=== PATIENT | male | born 1955 | race African-American/Black ===

== ENCOUNTER 2016-08-17 14:29 | Inpatient (IN) | payer MEDICARE, OTHER ==
--- NOTE | ~2016-08-17 | CN ---
Consultation Report [facility] [address] [place] [place]. [address] NAME: TOVA PRATT : 53 STATUS : ADM IN PAT#: [id number] AGE: 60 ADM/REG DATE : 08/17/16 MR#: [id number] REPORT SERV DATE: 08/19/16 DICTATED BY: AUDELIA PULIDO DATE: 08/19/16 REPORT STATUS : Draft TRANSCRIBED BY: MODFabio DATE: 08/19/16 NEUROLOGICAL EVALUATION DATE OF CONSULTATION: 08/18/2016 REASON FOR NEUROLOGICAL EVALUATION/CONSULTATION: Recurrent seizures, possible stroke. HISTORY OF PRESENT ILLNESS: History was obtained from the patient's sitter and from medical records in addition to the patient's primary provider Dr. Ibarra. This is a 60-year-old male with known history of cerebral palsy, long-standing history of seizure disorder with history of hypertension, hyperlipidemia, and possible history of past stroke, who was admitted from [facility] for an evaluation of possible recurrent seizures and altered mental status. The patient who was witnessed to have several seizures a day prior to admission, and as per description, the patient was not back to his baseline and was confused and lethargic. In the past, there was a concern that the patient may have had a recent stroke. 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 No acute changes were observed, although there was a mention that the patient may have had an old stroke involving the left hemisphere. The chronicity of the stroke was difficult to determine. The patient has been on multiple anticonvulsant medications, which included Keppra, Depakote, Lamictal, and Vimpat. In addition, patient's other medications include Lopressor, Zocor, Protonix, and Prinivil. Allergies to NSAIDs. SOCIAL HISTORY: The patient lives in a facility-[facility]. FAMILY HISTORY: Could not be obtained from the patient. As per patient, he has sisters and brothers who apparently do not come to visit him. REVIEW OF SYSTEMS: The patient was not able to provide all the history, however, it appeared that the patient may have been slightly postictal. MEDICATIONS: Keppra was 1000 mg p.o. b.i.d., Lamictal was 100 mg b.i.d., Vimpat was 200 mg in the morning and 300 mg at bedtime, Depakote was 500 mg p.o. b.i.d., Lopressor was 25 mg b.i.d., Zocor was 10 mg p.o. daily, and Prinivil was 20 mg p.o. daily. On admission, patient's EKG was regular sinus rhythm with mild criteria of left ventricular hypertrophy. The patient's laboratory studies were essentially unremarkable except for sodium of 130 on admission. PHYSICAL EXAMINATION: GENERAL: The patient was alert and cooperative, sitting in bed, quiet, not agitated, did not provide additional information. His speech was not dysarthric. There were signs of longstanding cognitive dysfunction and the patient's level of intelligence was difficult to Consultation Report [address] [place] [place]. [address] NAME: TOVA PRATT : 53 STATUS : ADM IN [facility]#: [id number] AGE: 60 ADM/REG DATE : 08/17/16 MR#: [id number] REPORT SERV DATE: 08/19/16 DICTATED BY: AUDELIA PULIDO DATE: 08/19/16 REPORT STATUS : Draft TRANSCRIBED BY: DILLAN DATE: 08/19/16 estimate at this time. However, it appears that the patient has had moderately severe mental retardation. The patient was oriented to self, but not to place or time. VITAL SIGNS: Blood pressure 140/66, pulse was 80, respirations 16, temperature was 96.5. HEAD AND NECK: Examination showed no evidence of acute trauma. The patient may have slight microcephaly. Eyes examination, sclerae were not icteric. Conjunctivae were pink. ENT exam, tongue was midline. No atrophy or fibrillations were noted. Neck was supple. There was no Kernig or Brudzinski. Cervical range of motion was not impaired. No JVD. No thyromegaly or lymphadenopathy noted. CHEST: Symmetrical. LUNGS: Clear to auscultation. HEART: Regular S1, S2. I did not appreciate any murmurs or rubs. ABDOMEN: Soft, nontender. No organomegaly. EXTREMITIES: Show no clubbing, cyanosis. There was no peripheral edema. Peripheral pulses were normal. NEUROLOGICAL: The patient was alert, oriented to self only, not to time and place. Level of intelligence is mentioned above, difficult to estimate. It appears the patient has moderately severe chronic mental retardation. He responded appropriately, appeared to be mildly subdued, followed commands, however, had difficulty following two-step commands. His speech was for the most part, fluent. There was evidence of possible long-standing dysphagia secondary to past neurological insult either or . CRANIAL NERVES: 2 through 12, patient's baseline gaze appeared to be dysconjugate. No limitation of upward or downward gaze or lateral gaze was noted. No facial asymmetry was noted. Lower cranial nerves appeared intact. The patient had normal gag reflex. Palate elevated symmetrically. The rest of cranial nerve examination appeared to show possible mild right visual neglect. 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 Strength on the left appeared intact, on the right 4-/5. Tone was markedly increased on the right. SENSORY: As mentioned, the patient may have mild sensory neglect on the right, however, appeared to perceive sensation equally on both sides. CEREBELLAR: Showed mild incoordination in [id number]-pc-[id number] on the left and the patient had difficulty performing it on the right secondary to a semi long-standing hemiparesis. Gait could not be tested. 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 No acute changes were noted. LABORATORY STUDIES: Sodium 132, potassium 4.1, chloride 96, BUN 10, creatinine 0.79, glucose 65, calcium 8.5. WBC count 4.9, hemoglobin 13.4, hematocrit 39.9, platelet count 211,000. IMPRESSION AND RECOMMENDATIONS: 1. History of longstanding seizure disorder. The patient is on multiple anticonvulsant medications. Recommend to continue present dosages without changing either timing, dosages, or number of anticonvulsant medications. Recommend to obtain Depakote level, Consultation Report [place] [address] [place]. [address] NAME: TOVA PRATT : 53 STATUS : ADM IN [facility]#: [id number] AGE: 60 ADM/REG DATE : 08/17/16 MR#: [id number] REPORT SERV DATE: 08/19/16 DICTATED BY: AUDELIA PULIDO DATE: 08/19/16 REPORT STATUS : Draft TRANSCRIBED BY: MODL DATE: 08/19/16 and if normal, continue present current dosage of Depakote. 2. Probable postictal state. 3. Acute on chronic encephalopathy. 4. Past history of possible stroke, rule out new stroke, although the patient's examination is not suggestive of it. The patient is awaiting to have an MRI done. Chronic cognitive dysfunction secondary to cerebral palsy and right chronic hemiparesis with spasticity and contractures. 5. Presence of significant degenerative changes in cervical [id number]-[id number]-[id number] degenerative changes. 6. Monitor patients for recurrent seizures, seizure precautions. The patient has increased risk of falling and injury. Review the EEG for now. Continue present medications. Obtain Depakote levels. The antihypertensive medications appear to function appropriately, but would not lower the patient's blood pressure below the present range of 140 systolic until more information is available from the MRI of the brain. Thank you for allowing me to participate in this patient's care and additional recommendations will follow according to the patient's clinical progress and results of abovementioned studies. ZAK/DILLAN Audelia Pulido MD / [id number] CC: Lupillo Segura M.D.
--- NOTE | ~2016-08-17 | HP ---
History And Physical [place] [address] [facility]. [address] NAME: TOVA PRATT : 53 STATUS : ADM IN PAT#: [id number] AGE: 60 ADM/REG DATE : 08/17/16 MR#: [id number] REPORT SERV DATE: 08/17/16 DICTATED BY: THAO CORREIA DATE: 08/17/16 REPORT STATUS : Draft TRANSCRIBED BY: MODL DATE: 08/17/16 DATE OF ADMISSION: 08/17/2016 CHIEF COMPLAINT: Seizure. HISTORY OF PRESENT ILLNESS: The patient is a 60-year-old male. He has a past medical history significant for known seizure disorder, organic brain syndrome, mental retardation, cerebral palsy, reflux disease, hypertension, and hyperlipidemia. He presents today as a referral from [facility]. He is seen without the benefit of caregivers who are familiar with him today. History is from the patient, available records, and the ER physician. Apparently yesterday, the patient had several witnessed seizures, but afterward seemed to be not his normal self. He was described as having more lethargy, more confusion, and for some reason, there was a concern of a stroke. On examination today, the patient is awake. He is alert. He is answers questions. His speech is somewhat slow and slurred, but there are no one present here today to know his underlying baseline. He is moving all extremities. He seems to have some chronic deviations of the right foot and right hand, but otherwise no other findings. He has some chronic hyponatremia, but his sodium was 130 today. It is uncertain as to when his last seizure occurred. It was apparently sometimes yesterday. PAST MEDICAL HISTORY: As covered above. PAST SURGICAL HISTORY: Not obtainable. CURRENT MEDICATIONS: His pharmacy summary is pending. ALLERGIES: ASPIRIN AND NSAIDS. FAMILY HISTORY: Unobtained. SOCIAL HISTORY: He is a nondrinker and nonsmoker. REVIEW OF SYSTEMS: The patient is not currently complaining of weakness, difficulty seeing, headache, nausea, vomiting, chest pain, palpitations, shortness of breath, or pain anywhere. He does state that this is not his baseline speech patter, however. PHYSICAL EXAMINATION: VITAL SIGNS: BP 177/94, pulse 67, temperature 97.4, respirations have been 16, and saturation 99%. GENERAL: He is awake, alert, in no acute distress. HEENT: Normocephalic, atraumatic. Sclerae nonicteric. NECK: Supple. HEART: Regular rate and rhythm. LUNGS: Clear to auscultation. ABDOMEN: Nontender. Nondistended. EXTREMITIES: He has trace edema. He has some lateral deviation to his right foot. He History And Physical [address] [place]. [address] NAME: TOVA PRATT : 53 STATUS : ADM IN PAT#: [id number] AGE: 60 ADM/REG DATE : 08/17/16 MR#: [id number] REPORT SERV DATE: 08/17/16 DICTATED BY: THAO CORREIA DATE: 08/17/16 REPORT STATUS : Draft TRANSCRIBED BY: DILLAN DATE: 08/17/16 appears to have some chronic deviation to the fingers of his right hand. LABORATORY DATA: Sodium 130, potassium 4.2, chloride 94, CO2 of 27, BUN and creatinine 11 and 0.89 with a glucose of 80. Troponins less than 0.02. White count 4.9, H and H are 13.4 and 39.9, platelets are 211. Urinalysis is pending. CT brain, no acute changes. Chest x-ray, no change in his 06/2016 EKG, sinus rhythm, LVH. ASSESSMENT: The patient appears to have seizure disorder in the past residual neurologic findings differential seizure versus cerebrovascular accident, although again his baseline is not determinable. PLAN: 1. The patient has been admitted. 2. We will resume his home medications. 3. We will place him on seizure precautions. 4. Volume restriction for his sodium. 5. Repeat lab. 6. MRI in a.m. 7. Additional recommendations as further history is available. His sitter attempted to call the flatwork supervisor at [facility] to get baseline and any additional history, but they have been unreachable at this time. TLF/MODL Thao Correia M.D. / [id number] CC: Lupillo Matthews M.D.
--- NOTE | ~2016-08-17 | DS ---
Discharge Summary [place] [address] [facility] [place]. [address] NAME: TOVA PRATT : 53 STATUS : DIS IN PAT#: [id number] AGE: 60 ADM/REG DATE : 08/17/16 MR#: [id number] REPORT SERV DATE: 08/23/16 DICTATED BY: MEGHANA ROSAS DATE: 08/22/16 REPORT STATUS : Draft TRANSCRIBED BY: MODL DATE: 08/22/16 ADMISSION DATE: 08/17/2016 DISCHARGE DATE: 08/21/2016 CONDITION ON DISCHARGE: Stable. DISPOSITION: Discharge back to [facility]. ADVISE ON DISCHARGE: To follow up with PCP within the next one to two weeks and to follow up with his regular neurologist, Dr. Crystal, within the next one to two weeks also. DIAGNOSES ON DISCHARGE: 1. Acute on chronic encephalopathy - resolved. His seizure medications have been adjusted after neurologist has been consulted. His EEG showed diffuse slowing, consistent with nonspecific findings versus probably postictal state in this patient for which his medications were adjusted. Neurology was consulted and Dr. Audelia Pulido take increased his Keppra to 1 g p.o. b.i.d. His chronic problems that have remained stable at this time include: 1. Chronic seizure disorder - now controlled. 2. He is on of at least four antiepileptic medications. 3. Chronic encephalopathy. 4. Cerebral palsy. 5. Hypertension. 6. Hyperlipidemia. 7. Old cerebrovascular accident with a stroke that happened on the left side of the brain that left him with contractures on the right side of the body including right hand and right foot which is probably chronic and also he already had some from his cerebral palsy and this became worse from the old stroke. However, the stroke is not new. BRIEF HOSPITAL COURSE: Mr. Pratt is a 60-year-old patient who is a resident of [facility] because of his mental retardation and cerebral palsy and organic brain syndrome with a known history of seizure disorder, came in because of increasing confusion, lethargy, and acute encephalopathy. Initially, he was admitted per stroke protocol, and workup was initiated per stroke protocol. Neurology was consulted. CT scan of the brain and MRI of the brain showed old stroke on the left side of the brain affecting the right side of the body, but this was old and no new strokes were identified. EEG showed diffuse nonspecific slowing, and Neurology felt that this could be nonspecific versus postictal state. However, the only suggestion that they had was continuing all four antiepileptic drugs but increase his Keppra to 1 g p.o. b.i.d. which happened. His encephalopathy resolved, and the patient pretty much came back to his baseline mental status on the day of discharge. There was also a question that he had swallowing difficulty, and hence, I involved Speech Therapy to do a dysphagia screen on this patient, and the patient does not display any signs of overt aspiration. Hence, it was recommended that the patient be given a soft mechanical diet with aspiration precautions which he has done really well on. Hence, he is being sent home on the following medications. His chronic home medications Discharge Summary [address] [place]. [address] NAME: TOVA PRATT : 53 STATUS : DIS IN PAT#: [id number] AGE: 60 ADM/REG DATE : 08/17/16 MR#: [id number] REPORT SERV DATE: 08/23/16 DICTATED BY: MEGHANA ROSAS DATE: 08/22/16 REPORT STATUS : Draft TRANSCRIBED BY: DILLAN DATE: 08/22/16 that he takes will remain the same and these will include the followin. Depakote 500 mg p.o. b.i.d. 2. Vimpat 200 mg p.o. daily and 300 mg at bedtime. 3. Lamictal 100 mg p.o. b.i.d. 4. Keppra which has been increased to 1000 mg p.o. b.i.d. now. Other medications include: 1. MiraLAX powder one packet p.o. b.i.d. 2. Alendronate or Fosamax 35 mg p.o. once a week. 3. Lisinopril 20 mg once a day and Lopressor 25 mg p.o. b.i.d. which are both for hypertension. 4. Zocor 10 mg p.o. at bedtime. The patient will also be on aspirin 81 mg once a at this time. Other than that, no other new medications have been added on this gentleman. DISCHARGE LABORATORY DATA: The most recent labs that are relevant that I have on this patient include: 1. A hemoglobin A1c that came back at 5.2. 2. CBC on 08/17/2016 that showed a completely normal CBC essentially with WBC 4.9, hemoglobin 13.4, hematocrit 39.9, and platelet count of 211. 3. INR was 1.1. 4. Chest x-ray, PA and lateral view showed chronic elevation of the right diaphragm and some atelectasis of the right lung base but no infiltrate. 5. Urinalysis came back with no signs of any significant UTI. 6. His electrolyte profile came back with sodium 132, potassium 4.1, BUN 10, and creatinine 0.7. Depakote level was normal at 85.2. CONSULTATIONS OBTAINED: Only include a Neurology consultation by Dr. Audelia Pulido. Hence, he is being sent to [facility] in stable condition, and I have spent about 40 to 45 minutes in coordinating discharge care of this patient including [id number] encounter. RRA/MODL Meghana Rosas M.D. / [id number] CC: Lupillo Segura M.D.
--- NOTE | ~2016-08-17 | EEG ---
Electroencephalogram [place] [address] [place]. [address] NAME: TOVA PRATT : 53 STATUS : ADM IN PAT#: [id number] AGE: 60 ADM/REG DATE : 08/17/16 MR#: [id number] REPORT SERV DATE: 08/19/16 DICTATED BY: AUDELIA PULIDO DATE: 08/19/16 REPORT STATUS : Draft TRANSCRIBED BY: MODFabio DATE: 08/19/16 EEG NUMBER: [id number] REQUESTING PHYSICIAN: Mariya Ibarra M.D. and Dr. Audelia Pulido M.D. REASON FOR EEG: Recurrent seizures, history of mental retardation, and past history of a CVA. 23 surface electrodes, 10-20 international placement was used. The patient was noted to be awake, drowsy, and asleep throughout the study. Photic stimulation was performed. The background activity consisted of moderate voltage, relatively well organized 6-7 cycles per second located in the posterior head regions. During the alert portion of the recording, the patient reached stage I and II sleep. Appeared to have no abnormal epileptiform discharges during the awake, drowsy, and sleep portions. Photic stimulation did not bring out additional abnormalities. No significant asymmetry of cerebral activity was noted. IMPRESSION: ABNORMAL EEG CHARACTERIZED BY PRESENCE OF DIFFUSE SLOWING OF BACKGROUND ACTIVITY. NO PAROXYSMAL EPILEPTIFORM ACTIVITY WAS NOTED DURING THIS STUDY. COMMENT: THIS EEG IS COMPATIBLE WITH DIFFUSE CEREBRAL DYSFUNCTION. A POSTICTAL STATE COULD NOT BE RULED OUT. CLINICAL CORRELATION IS RECOMMENDED. ZAK/DILLAN Audelia Pulido MD / [id number] CC: Lupillo Segura M.D.
[~2016-08-17 14:29] MED LIST: ACTONEL35 MG PO; AXID300 MG PO; CENTRUM PO; CITRACAL PO; DEPAKOT250 PO; DEPAKOT500 PO; DIASTAT ACDL PR; GOLD BOND POWDER T; GOLD BOND POWDER TOP; HEAD AND SHOULDERS T; HEAD AND SHOULDERS TOP; LAMICTAL10 PO; LAMICTAL150 MG PO; LOP25 PO; MIRALAXPKT PO; MULTIPLE VIT PO; MULTIVITAMI1 PO; PRILO PO; PRILOSEC40 MG PO; PRIN10 PO; PRIN20 PO; VIMPAT200 MG PO; VIMPAT50 MG PO; VIT D; ZOCOR10 PO; ZOCOR20 PO; ZOFRAN8 PO; ZOFRANODT8 PO; ZYRTEC ALLGY10 MG PO; [UNRECOGNIZED DRUG - OTHER] T; [UNRECOGNIZED DRUG - OTHER] T
[2016-08-17 15:04] LABS: BASOPHILS 0.2 %; BASOPHILS ABSOLUTE 0.01 10/3/uL (0.0-0.16); EOSINOPHILS 5.1 %; EOSINOPHILS ABSOLUTE 0.25 10/3/uL (0.0-0.53); ER CBC TAT 0 Hrs 08 Mins; HEMATOCRIT 39.9 % (40.0-51.0); HEMOGLOBIN 13.4 g/dL (13.6-17.8); IMMATURE GRANULOCYTES 0.2 %; IMMATURE GRANULOCYTES ABSOLUTE 0.01 10/3/uL (0.0-0.11); LYMPHOCYTES 29.4 %; LYMPHOCYTES ABSOLUTE 1.44 10/3/uL (0.67-4.30); MEAN CORPUS HGB CONC 33.6 g/dL (32.0-36.0); MEAN CORPUSCULAR VOLUME 86.4 fL (80-100); MEAN PLATELET VOLUME 9.8 fL (9.2-13.0); MONOCYTES 8.6 %; MONOCYTES ABSOLUTE 0.42 10/3/uL (0.21-1.20); NEUTROPHILS 56.5 %; NEUTROPHILS ABSOLUTE 2.77 10/3/uL (2.02-8.40); PLATELET COUNT 211 10/3/uL (150-400); RBC DISTRIBUTION WIDTH 13.4 % (12.0-16.0); RED CELL COUNT 4.62 10/6/uL (4.7-6.1); WHITE BLOOD CELLS 4.9 10/3/uL (4.5-10.5)
[2016-08-17 15:12] LABS: INTERNATIONAL NORMAL RATI 1.1 UNITS (-); MANUAL DIFF NO %; PARTIAL THROMBO TIME 28.7 SEC (22.5-37.2); PROTIME (NOT ORD) 13.7 SEC (12.0-14.5)
[2016-08-17 15:19] LABS: A/G RATIO 0.8 (0.7-1.9); ALBUMIN 3.8 G/DL (3.5-5.0); ALKALINE PHOSPHATASE 34 U/L (45-117); BUN (BLOOD UREA NITROGEN) 11 MG/DL (6-23); CALCIUM, SERUM 8.9 MG/DL (8.5-10.4); CHLORIDE, SERUM 94 MMOL/L (96-112); CO2 (CARBON DIOXIDE) 27 MMOL/L (24-34); CREATININE 0.89 MG/DL (0.70-1.30); GFR AFRICAN AMERICAN 107 ML/MIN (>=60); GFR NON AFRICAN AMERICAN 92 ML/MIN (>=60); GLOBULIN 4.7 G/DL (2.5-4.1); GLUCOSE, SERUM 80 MG/DL (60-99); POTASSIUM, SERUM 4.2 MMOL/L (3.5-5.3); SGOT(AST) 10 U/L (5-40); SGPT(ALT) 16 U/L (5-65); SODIUM, SERUM 130 MMOL/L (135-148); TOTAL BILIRUBIN 0.3 MG/DL (0-1.2); TOTAL PROTEIN 8.5 G/DL (6.0-8.5); TROPONIN I <0.02 NG/ML (<0.05)
[2016-08-17] MEDS ORDERED: MIRALAX POWDER1 PKT PO (18:22)
[2016-08-17] MEDS ORDERED: VIMPAT200 MG PO (18:22)
[2016-08-17] MEDS ORDERED: DEPAKOT500 PO (18:22)
[2016-08-17] MEDS ORDERED: KEPPRA500 PO (18:23)
[2016-08-17] MEDS ORDERED: VIMPAT100 MG PO (18:23)
[2016-08-17] MEDS ORDERED: KEPPRA1000 MG PO (18:23)
[2016-08-17] MEDS ORDERED: EMLA TOP (18:24)
[2016-08-17] MEDS ORDERED: LAMICTAL10 PO (18:26)
[2016-08-17] MEDS ORDERED: [UNRECOGNIZED DRUG - OTHER] NAS (18:26)
[2016-08-17] MEDS ORDERED: FOSAMAX35 MG PO (18:28)
[2016-08-17] MEDS ORDERED: LOP25 PO (18:28)
[2016-08-17] MEDS ORDERED: PRIN20 PO (18:28)
[2016-08-17] MEDS ORDERED: CITRACAL PO (18:29)
[2016-08-17] MEDS ORDERED: THERGRANM PO (18:29)
[2016-08-17] MEDS ORDERED: ZOCOR10 PO (18:29)
[2016-08-17] MEDS ORDERED: [UNRECOGNIZED DRUG - OTHER] TOP (18:30)
[2016-08-17] MEDS ORDERED: FLONASE NAS (18:30)
[2016-08-17] MEDS ORDERED: PROTONIX PO (18:31)
[2016-08-17] MEDS ORDERED: LAMISIL TOP (18:31)
[2016-08-17] MEDS ORDERED: DIAZEPAM 20 MG PR (18:32)
[2016-08-17 19:19] LABS: ASCORBIC ACID (UR NOT ORDER) NEG (NEG); BILIRUBIN, URINE NEGATIVE (NEG); ER URINALYSIS TAT 0 Hrs 07 Mins; KETONE, URINE TRACE MG/DL (NEG); LEUKOCYTE ESTERASE(NOT OR NEG (NEG); NITRITE (URINE) NEG (NEG); WBC (NOT ORDERED) (RFLEX) < 1 (0-5)
[2016-08-17 22:28] LABS: CHOL/HDL RATIO(NOT ORDER) 1.4 (0-5); CHOLESTEROL 144 MG/DL (< 200); HDL CHOLESTEROL 103 MG/DL (> 39); LDL CHOLESTEROL 35 MG/DL (< 130); NON-HDL CHOLESTEROL 41 MG/DL (< 160); TRIGLYCERIDE 34 MG/DL (< 150)
[2016-08-18 06:51] LABS: BUN (BLOOD UREA NITROGEN) 10 MG/DL (6-23); CALCIUM, SERUM 8.5 MG/DL (8.5-10.4); CHLORIDE, SERUM 96 MMOL/L (96-112); CO2 (CARBON DIOXIDE) 25 MMOL/L (24-34); CREATININE 0.79 MG/DL (0.70-1.30); GFR AFRICAN AMERICAN 112 ML/MIN (>=60); GFR NON AFRICAN AMERICAN 97 ML/MIN (>=60); GLUCOSE, SERUM 65 MG/DL (60-99); POTASSIUM, SERUM 4.1 MMOL/L (3.5-5.3); SODIUM, SERUM 132 MMOL/L (135-148)
[2016-08-18 13:08] LABS: DEPAKENE (VALPROIC ACID) 85.2 MCG/ML (50.0-100.0)
== END 2016-08-21 13:23 | DRG 101 ==
LOC: ER 14:29 → 6NO 18:36
PROVIDERS: Emergency Medicine; Internal Medicine
DX: G40.909 Epilepsy, unspecified, not intractable, without status epilepticus (principal); E87.1 Hypo-osmolality and hyponatremia; G80.9 Cerebral palsy, unspecified; I10 Essential (primary) hypertension; F79 Unspecified intellectual disabilities; K21.9 Gastro-esophageal reflux disease without esophagitis; E78.5 Hyperlipidemia, unspecified; I69.398 Other sequelae of cerebral infarction; Q68.8 Other specified congenital musculoskeletal deformities; M24.574 Contracture, right foot; M24.541 Contracture, right hand; K59.00 Constipation, unspecified
CPT/HCPCS: 70450; 70551-52; 71020; 80048; 80053; 80061; 80164; 81001; 82607; 82746; 82962; 83036; 84439; 84443; 84484; 85025; 85610; 85730; 92610-GN; 93005; 95819; 97161-GP; 99285; A9270-GY; G8978-CL-GP; G8979-CL-GP; G8980-CL-GP; G8996-CJ-GN; G8997-CJ-GN; G8998-CJ-GN

== ENCOUNTER 2016-09-07 20:56 | Emergency (ER) | payer MEDICARE, OTHER ==
[~2016-09-07 20:56] MED LIST changes: +DIAZEPAM 20 MG PR; +EMLA TOP; +FLONASE NAS; +FOSAMAX35 MG PO; +KEPPRA1000 MG PO; +KEPPRA500 PO; +LAMISIL TOP; +MIRALAX POWDER1 PKT PO; +PROTONIX PO; +THERGRANM PO; +VIMPAT100 MG PO; +[UNRECOGNIZED DRUG - OTHER] NAS; +[UNRECOGNIZED DRUG - OTHER] TOP
[2016-09-07 21:40] LABS: BASOPHILS 0.1 %; BASOPHILS ABSOLUTE 0.01 10/3/uL (0.0-0.16); EOSINOPHILS 0.8 %; EOSINOPHILS ABSOLUTE 0.07 10/3/uL (0.0-0.53); HEMATOCRIT 37.4 % (40.0-51.0); HEMOGLOBIN 12.6 g/dL (13.6-17.8); IMMATURE GRANULOCYTES 0.7 %; IMMATURE GRANULOCYTES ABSOLUTE 0.06 10/3/uL (0.0-0.11); LYMPHOCYTES 22.1 %; LYMPHOCYTES ABSOLUTE 1.97 10/3/uL (0.67-4.30); MEAN CORPUS HGB CONC 33.7 g/dL (32.0-36.0); MEAN CORPUSCULAR HEMOGLOB 29.6 pg (26.0-34.0); MEAN CORPUSCULAR VOLUME 87.8 fL (80-100); MEAN PLATELET VOLUME 10.3 fL (9.2-13.0); MONOCYTES 8.9 %; MONOCYTES ABSOLUTE 0.79 10/3/uL (0.21-1.20); NEUTROPHILS 67.4 %; NEUTROPHILS ABSOLUTE 6.01 10/3/uL (2.02-8.40); PLATELET COUNT 218 10/3/uL (150-400); RBC DISTRIBUTION WIDTH 14.8 % (12.0-16.0); RED CELL COUNT 4.26 10/6/uL (4.7-6.1)
[2016-09-07 21:41] LABS: ER CBC TAT 0 Hrs 09 Mins; MANUAL DIFF NO %; WHITE BLOOD CELLS 8.9 10/3/uL (4.5-10.5)
[2016-09-07 21:56] LABS: A/G RATIO 0.8 (0.7-1.9); ALBUMIN 3.3 G/DL (3.5-5.0); ALKALINE PHOSPHATASE 28 U/L (45-117); BUN (BLOOD UREA NITROGEN) 16 MG/DL (6-23); CALCIUM, SERUM 8.9 MG/DL (8.5-10.4); CHLORIDE, SERUM 95 MMOL/L (96-112); CO2 (CARBON DIOXIDE) 32 MMOL/L (24-34); CREATININE 1.06 MG/DL (0.70-1.30); GFR AFRICAN AMERICAN 87 ML/MIN (>=60); GFR NON AFRICAN AMERICAN 75 ML/MIN (>=60); GLUCOSE, SERUM 102 MG/DL (60-99); POTASSIUM, SERUM 4.2 MMOL/L (3.5-5.3); SGOT(AST) < 3 U/L (5-40); SGPT(ALT) 18 U/L (5-65); SODIUM, SERUM 131 MMOL/L (135-148); TOTAL BILIRUBIN 0.3 MG/DL (0-1.2); TOTAL PROTEIN 7.3 G/DL (6.0-8.5)
[2016-09-07 22:00] LABS: ASCORBIC ACID (UR NOT ORDER) NEG (NEG); BILIRUBIN, URINE NEGATIVE (NEG); ER URINALYSIS TAT 0 Hrs 22 Mins; KETONE, URINE NEGATIVE (NEG); LEUKOCYTE ESTERASE(NOT OR NEG (NEG); NITRITE (URINE) NEG (NEG); WBC (NOT ORDERED) (RFLEX) 1 (0-5)
== END 2016-09-07 23:23 | disposition home or self-care (01) ==
LOC: ER 20:56
PROVIDERS: Nurse Practitioner Acute Care
DX: R56.9 Unspecified convulsions (principal); I10 Essential (primary) hypertension; K21.9 Gastro-esophageal reflux disease without esophagitis; F17.200 Nicotine dependence, unspecified, uncomplicated; Z88.8 Allergy status to other drugs, medicaments and biological substances; Z79.899 Other long term (current) drug therapy
CPT/HCPCS: 71010; 80053; 81001; 85025; 99285